=== PATIENT | male | born 1970 | race Caucasian/White ===

== ENCOUNTER → 2020-01-23 14:41 | Outpatient (CLI) | payer OTHER, SELFPAY ==
--- NOTE | ~2020-01-23 | XR_ITS ---
XR finger 2nd RT min 2V 01/23/2020 14:57 Indication: Displaced fracture right second finger Procedure: 4 views right second finger Comparison: No prior studies for comparison. Findings: There is a comminuted displaced tuft fracture right second distal phalanx. Moderate overlyi ng soft tissue swelling. No other fracture identified. Possible foreign bodies in the volar soft tiss ues near the skin surface. Impression: 1: Comminuted displaced tuft fracture right second distal phalanx. Reviewed, dictated and finalized at location A. Impression: 1: Comminuted displaced tuft fracture right second distal phalanx.
== END ==
PROVIDERS: PCP Internal Medicine; Visit Provider Plastic Surgery
DX: S62.630A Displaced fracture of distal phalanx of right index finger, initial encounter for closed fracture (principal)
CPT/HCPCS: 73140

== ENCOUNTER 2020-01-30 09:21 | Outpatient (CLI) | payer OTHER, SELFPAY ==
--- NOTE | ~2020-01-30 | XR_ITS ---
EXAMINATION: XR finger 2nd RT min 2V INDICATION: Second distal phalanx fracture follow-up TECHNIQUE: Four views of the second finger are obtained. COMPARISON: None available FINDINGS: There is a comminuted tuft fracture of the second distal phalanx which is not significantly changed. There are 2 mm of dorsal displacement of the largest distal fracture fragment. Soft tissue swelling surrounds the fracture. No definite calcified callus formation is identified. A splint has b een applied. IMPRESSION: 1. Comminuted tuft fracture of the second distal phalanx without significant change. Reviewed, dictated and finalized at location A. IMPRESSION: 1. Comminuted tuft fracture of the second distal phalanx without significant ch joyce.
== END 2020-01-30 09:22 | disposition home or self-care (01) ==
LOC: ANHIMG 09:25
PROVIDERS: PCP Internal Medicine; Visit Provider Plastic Surgery
DX: S62.630A Displaced fracture of distal phalanx of right index finger, initial encounter for closed fracture (principal)
CPT/HCPCS: 73140

== ENCOUNTER 2020-02-17 08:16 | Outpatient (CLI) | payer OTHER, SELFPAY ==
--- NOTE | ~2020-02-17 | XR_ITS ---
EXAMINATION: XR finger 2nd RT min 2V DATE: 02/17/2020 08:40 INDICATION: Fracture of the right second distal phalanx. TECHNIQUE: Dorsal palmar, lateral and 2 oblique views of the right second digit were obtained COMPARISON: None FINDINGS: Again seen is a minimally displaced comminuted fracture involving the distal half of the right second distal phalanx. The fracture margins appear less distinct consistent subacute fracture. No definitiv e productive changes of healing yet apparent. No appreciable osteolysis to suggest osteomyelitis. No other fractures identified. 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 Soft tissue swelling about the dis ashu second digit. IMPRESSION: 1. No significant interval change in a an ununited minimally displaced comminuted extra articular fra cture of the second distal phalanx. Reviewed, dictated and finalized at location A. IMPRESSION: 1. No significant interval change in a an ununited minimally displaced comminut ed extra articular fracture of the second distal phalanx.
== END 2020-02-17 08:17 | disposition home or self-care (01) ==
PROVIDERS: PCP Internal Medicine; Visit Provider Plastic Surgery
DX: S62.630A Displaced fracture of distal phalanx of right index finger, initial encounter for closed fracture (principal)
CPT/HCPCS: 73140

== ENCOUNTER 2021-01-23 16:59 | Outpatient (CLI) | payer OTHER, SELFPAY | END 2021-01-23 17:00 | disposition home or self-care (01) | LOC: ANHCOVIDVC 16:59 | PROVIDERS: PCP Internal Medicine | DX: Z23 Encounter for immunization (principal) | CPT/HCPCS: 0001A; 91300 ==

== ENCOUNTER 2021-02-13 16:58 | Outpatient (CLI) | payer OTHER, SELFPAY | END 2021-02-13 16:59 | disposition home or self-care (01) | LOC: ANHCOVIDVC 16:58 | PROVIDERS: PCP Internal Medicine | DX: Z23 Encounter for immunization (principal) | CPT/HCPCS: 0002A; 91300 ==